=== PATIENT | male | born 1960 | race Asian ===

== ENCOUNTER 2017-08-17 05:20 | Inpatient (IN) | payer BC ==
[~2017-08-17] VITALS: Ht 167.6 cm; Wt 68.0 kg
[2017-08-17] MEDS ORDERED: LISI10TA5 PO (06:21)
[2017-08-17] MEDS ORDERED: LIP40 PO (06:21)
[2017-08-17] MEDS ORDERED: HYDR12.585 PO (06:21)
[2017-08-17] MEDS ORDERED: LOP600 PO (06:21)
[2017-08-17] MEDS ORDERED: METF1000 PO (06:21)
[2017-08-17] MEDS ORDERED: DEXAMETHASONE SOD PHOSPHATE 4 MG/ML VIAL IVP ONE (07:15)
[2017-08-17] MEDS ORDERED: ONDANSETRON HCL 4 MG/2 ML VIAL IVP ONE (07:15)
[2017-08-17] MEDS ORDERED: BACITRACIN ZINC 15 GM TOPICAL OINTMENT TP ONE (07:15)
[2017-08-17] MEDS ORDERED: fentaNYL CITRATE/PF 100 MCG/2 ML AMP IVP ONE (07:15)
[2017-08-17] MEDS ORDERED: SEVOFLURANE 15 MIN GAS INH ONE (07:15)
[2017-08-17] MEDS ORDERED: MIDAZOLAM HCL 5 MG/5 ML VIAL IVP ONE (07:15)
[2017-08-17] MEDS ORDERED: NS IRRIG SOLN 1000 ML IR ONE (07:15)
[2017-08-17] MEDS ORDERED: PROPOFOL 200MG/ 20ML VIAL (DIPRIVAN) IV ONE (07:15)
[2017-08-17] MEDS ORDERED: THROMBIN (BOVINE) 5000 UNITS/ VIAL TP ONE (07:15)
[2017-08-17] MEDS ORDERED: SUCCINYLCHOLINE CHLORIDE 20 MG/ML(QUELICIN) IVP ONE (07:15)
[2017-08-17] MEDS ORDERED: CEFAZOLIN 1 GM IVPB PREMIX 50 ML IV ONE (07:15)
[2017-08-17] MEDS ORDERED: LIDOCAINE/EPI 1% 1:100000 20 ML VIAL INJ ONE (07:15)
[2017-08-17] MEDS ORDERED: LR 1,000 ML IV.SOLN IV ONE (07:15)
[2017-08-17] MEDS ORDERED: LR 1,000 ML IV SCH (10:00)
[2017-08-17] MEDS ORDERED: METOCLOPRAMIDE HCL 10 MG/2 ML VIAL IVP PRN (10:00)
[2017-08-17] MEDS ORDERED: MORPHINE 4 MG/ML INJ. SYRINGE IVP PRN ×3 (10:00)
[2017-08-17] MEDS ORDERED: ONDANSETRON HCL 4 MG/2 ML VIAL IVP PRN (10:30)
[2017-08-17] MEDS ORDERED: HYDROcodone/ACETAMIN 5-325 MG TAB (NORCO/ VICODIN) PO PRN (10:30)
[2017-08-17 13:29] VITALS: BP_SYST 119
[2017-08-17] MEDS ORDERED: NORMAL SALINE 5 ML DISP.SYRIN IVF SCH (14:00)
[2017-08-17] MEDS: DEXAMETHASONE SOD PHOSPHATE 4 MG/ML VIAL IVP SCH ×2 (15:02→23:31)
[2017-08-17] MEDS: NORMAL SALINE 5 ML DISP.SYRIN IVF SCH ×2 (15:04→22:00)
[2017-08-17 20:00] VITALS: BP_SYST 106
[2017-08-17] MEDS ORDERED: metFORMIN HCL 500 MG TABLET PO ONE (23:30)
[2017-08-18 00:13] VITALS: BP_SYST 94
[2017-08-18 08:00] VITALS: BP_SYST 103
[2017-08-18 10:04] VITALS: BP_SYST 103
== END 2017-08-18 10:35 | disposition home or self-care (01) | DRG 627 ==
LOC: SMU 05:20
PROVIDERS: ADMIT Otolaryngology Plastic Surgery within the Head & Neck; ATTEND Otolaryngology Plastic Surgery within the Head & Neck
PROC: 4A1 Measurement and Monitoring, Physiological Systems, Monitoring (ICD-10-PCS; 2017-08-17)
PROC: 0GTJ0ZZ Resection of Thyroid Gland Isthmus, Open Approach (ICD-10-PCS; principal; 2017-08-17 07:30)
DX: C73 Malignant neoplasm of thyroid gland (principal); H43.813 Vitreous degeneration, bilateral; E11.9 Type 2 diabetes mellitus without complications; I10 Essential (primary) hypertension; E78.5 Hyperlipidemia, unspecified; E55.9 Vitamin D deficiency, unspecified; H25.093 Other age-related incipient cataract, bilateral; H52.13 Myopia, bilateral; H52.203 Unspecified astigmatism, bilateral; H52.4 Presbyopia; Z88.6 Allergy status to analgesic agent
CPT/HCPCS: 36415; 82310-TC; 82962; 87081; 88307; J0330; J0690; J1100; J2250; J2270; J2405; J2704; J3010; J7120